=== PATIENT | male | born 1955 | race Two or more races ===

== ENCOUNTER 2016-09-16 00:15 | Emergency (ER) | payer SELFPAY ==
[~2016-09-16] VITALS: Ht 170.2 cm; Wt 70.0 kg
[~2016-09-16 00:15] MED LIST: AMLODIPINE10 MG OR; FIORICET PO; LISINOPRIL10 MG PO; LISINOPRIL20 M1 OR; LISINOPRIL20 MG PO; NAPROSYN500 MG PO; NO HOME MEDS; NORVASC5 MG OR; RESTORIL15 M1 OR; TENORMIN OR
[2016-09-16] MEDS ORDERED: LIPITOR10 M1 PO (00:53)
[2016-09-16 01:05] LABS: HEMATOCRIT 42.6 % (39.0-50.0); HEMOGLOBIN 14.3 g/dl (14.0-18.0); IMMATURE GRANULOCYTES 0.1 % (0.0-1.0); MEAN CELL VOLUME 87.3 fL CALC (80.0-100.0); MEAN CORPUSCULAR HGB 29.3 pG CALC (26.0-32.0); MEAN CORPUSCULAR HGB CONC 33.6 g/L CALC (32.0-36.0); NEUT# 4.36 thou/uL (1.82-7.42); RED BLOOD COUNT 4.88 mill/uL (4.70-6.10); RED CELL DISTRI WIDTH 13.8 % (11.5-15.5)
[2016-09-16 01:21] LABS: ALBUMIN 4.4 g/dL (3.2-5.0); ALKALINE PHOSPHATASE 45 u/l (38-126); ANION GAP 15 (6-22 (CALC)); BILIRUBIN, TOTAL 0.9 mg/dL (0.0-1.4); BUN 10 mg/dL (9-20); BUN/CREATININE RATIO 12 (12-20 (CALC)); CALCIUM 9.4 mg/dL (8.4-10.2); CARBON DIOXIDE 28 mmol/l (22-30); CHLORIDE 102 mmol/l (95-108); CREATININE 0.8 mg/dL (0.7-1.3); GFR > 60 ML/MIN (>=60 (CALC)); GFR FOR AFR.AMER. > 60 ML/MIN (>=60 (CALC)); GLUCOSE 123 mg/dL (75-110); SGOT/AST 26 u/l (17-59); SGPT/ALT 42 u/l (21-72); SODIUM 141 mmol/l (137-146); TOTAL PROTEIN 7.4 g/dL (6.3-8.2)
[2016-09-16 01:33] LABS: MYOGLOBIN 126 ng/mL (0 - 121)
[2016-09-16 02:26] LABS: BARBITURATES NEGATIVE (NEGATIVE); COCAINE NEGATIVE (NEGATIVE); METHADONE NEGATIVE (NEGATIVE); OXCYCODONE NEGATIVE (NEGATIVE); TETRAHYDROCANNABIONOL NEGATIVE (NEGATIVE); TRICYLIC ANTIDEPRESSANTS NEGATIVE (NEGATIVE)
[2016-09-16 02:27] LABS: URINE BILIRUBIN - DIPSTICK NEGATIVE (NEGATIVE); URINE BLOOD DIPSTICK NEGATIVE (NEGATIVE); URINE CLARITY CLEAR; URINE COLOR YELLOW; URINE GLUCOSE - DIPSTICK NEGATIVE (NEGATIVE); URINE KETONE NEGATIVE (NEGATIVE); URINE LEUK ESTERASE NEGATIVE (NEGATIVE); URINE NITRITE - DIPSTICK NEGATIVE (Negative); URINE PH 6.5 (4.5-8.0); URINE PROTEIN - DIPSTICK NEGATIVE (NEG-TRACE); URINE SPECIFIC GRAVITY <=1.005; URINE UROBILINOGEN - DIPSTICK 0.2 E.U./dL (0.2)
[2016-09-16] MEDS ORDERED: XANAX0.5 MG PO (02:57)
[2016-09-16 03:03] VITALS: BP 140/89
== END 2016-09-16 03:10 | disposition home or self-care (01) | DRG 882 ==
LOC: ED 00:15
PROVIDERS: Emergency Medicine
DX: F43.29 Adjustment disorder with other symptoms (principal)

== ENCOUNTER 2016-10-01 10:14 | Emergency (ER) | payer SELFPAY ==
[~2016-10-01] VITALS: Ht 170.2 cm; Wt 55.0 kg
[~2016-10-01 10:14] MED LIST changes: +LIPITOR10 M1 PO; +XANAX0.5 MG PO
[2016-10-01] MEDS ORDERED: XANAX0.5 MG PO (10:32)
[2016-10-01 10:40] VITALS: BP 133/87
== END 2016-10-01 10:42 | disposition home or self-care (01) | DRG 880 ==
LOC: ED 10:14
DX: F41.1 Generalized anxiety disorder (principal); I10 Essential (primary) hypertension; F43.0 Acute stress reaction; Z86.73 Personal history of transient ischemic attack (TIA), and cerebral infarction without residual deficits

== ENCOUNTER 2017-06-23 15:33 | Emergency (ER) | payer OTHER ==
[~2017-06-23] VITALS: Ht 170.2 cm; Wt 67.0 kg
[2017-06-23] MEDS ORDERED: METFORMIN500 MG PO (15:58)
[2017-06-23 16:34] LABS: URINE BILIRUBIN - DIPSTICK NEGATIVE (NEGATIVE); URINE BLOOD DIPSTICK NEGATIVE (NEGATIVE); URINE COLOR YELLOW; URINE GLUCOSE - DIPSTICK NEGATIVE (NEGATIVE); URINE KETONE NEGATIVE (NEGATIVE); URINE LEUK ESTERASE NEGATIVE (NEGATIVE); URINE NITRITE - DIPSTICK NEGATIVE (Negative); URINE PH 7.5 (4.5-8.0); URINE PROTEIN - DIPSTICK NEGATIVE (NEG-TRACE); URINE UROBILINOGEN - DIPSTICK 0.2 E.U./dL (0.2)
[2017-06-23 16:38] LABS: HEMATOCRIT 39.6 % (39.0-50.0); HEMOGLOBIN 13.2 g/dl (14.0-18.0); IMMATURE GRANULOCYTES 0.6 % (0.0-1.0); MEAN CELL VOLUME 88.4 fL CALC (80.0-100.0); MEAN CORPUSCULAR HGB 29.5 pG CALC (26.0-32.0); MEAN CORPUSCULAR HGB CONC 33.3 g/L CALC (32.0-36.0); NEUT# 4.6 thou/uL (1.82-7.42); RED BLOOD COUNT 4.48 mill/uL (4.70-6.10); RED CELL DISTRI WIDTH 13.3 % (11.5-15.5)
[2017-06-23 16:47] LABS: URINE CLARITY CLEAR
[2017-06-23 16:56] LABS: ALBUMIN 4.1 g/dL (3.2-5.0); ALKALINE PHOSPHATASE 47 u/l (38-126); ANION GAP 16 (6-22 (CALC)); BILIRUBIN, TOTAL 0.5 mg/dL (0.0-1.4); BUN 11 mg/dL (9-20); BUN/CREATININE RATIO 11 (12-20 (CALC)); CARBON DIOXIDE 31 mmol/l (22-30); CHLORIDE 97 mmol/l (95-108); GFR > 60 ML/MIN (>=60 (CALC)); GFR FOR AFR.AMER. > 60 ML/MIN (>=60 (CALC)); POTASSIUM 4.1 mmol/l (3.5-5.1); SGOT/AST 25 u/l (17-59); SGPT/ALT 33 u/l (21-72); SODIUM 139 mmol/l (137-146); TOTAL PROTEIN 6.8 g/dL (6.3-8.2)
[2017-06-23] MEDS ORDERED: XANAX0.5 MG PO (17:18)
[2017-06-23 17:29] LABS: TSH, 3RD GENERATION 1.03 uIU/mL (0.47 - 4.68)
[2017-06-23 17:34] VITALS: BP 99/65
== END 2017-06-23 17:34 | disposition home or self-care (01) | DRG 880 ==
LOC: ED 15:33
PROVIDERS: Emergency Medicine
DX: F41.9 Anxiety disorder, unspecified (principal); E11.8 Type 2 diabetes mellitus with unspecified complications; R42 Dizziness and giddiness; R53.1 Weakness; Z79.84 Long term (current) use of oral hypoglycemic drugs

== ENCOUNTER 2017-07-05 14:30 | Observation (INO) | payer OTHER ==
[~2017-07-05] VITALS: Ht 170.2 cm; Wt 52.2 kg
[~2017-07-05 14:30] MED LIST changes: +METFORMIN500 MG PO
--- NOTE | 2017-07-05 14:37 | NUR ---
PT TAKEN TO ER ROOM 9 BY EMS. IN ROOM. EKG COMPLETE.
--- NOTE | 2017-07-05 15:10 | NUR ---
LAB SPECIMENS AND URINE COLLECTED FROM PT. TOLERATED WELL. INFORMED OF WAIT TIME FOR RESULTS. VERBALIZED UNDERSTANDING. SCHOOL PROGRAM DIRECTOR IN PLACE. CALL LIGHT WITHIN REACH.
--- NOTE | 2017-07-05 15:15 | NUR ---
PT RESTING COMFORTABLE IN STRETCHER AND DENIES ANY PAIN AT THIS TIME. PT FEELING MUCH BETTER AFTER TAKING HIS XANAX COMMUNITY SERVICES COORDINATOR. VSS. PT TXTING ON PHONE AND IS AWARE OF PLAN OF CARE AND WAIT TIME. CALL DAMON WITHIN REACH.
[2017-07-05 15:20] LABS: HEMATOCRIT 41.6 % (39.0-50.0); HEMOGLOBIN 13.8 g/dl (14.0-18.0); IMMATURE GRANULOCYTES 0.6 % (0.0-1.0); MEAN CELL VOLUME 88.9 fL CALC (80.0-100.0); MEAN CORPUSCULAR HGB 29.5 pG CALC (26.0-32.0); MEAN CORPUSCULAR HGB CONC 33.2 g/L CALC (32.0-36.0); NEUT# 5.41 thou/uL (1.82-7.42); RED BLOOD COUNT 4.68 mill/uL (4.70-6.10); RED CELL DISTRI WIDTH 13.7 % (11.5-15.5)
[2017-07-05 15:37] LABS: ANION GAP 16 (6-22 (CALC)); BUN 17 mg/dL (9-20); BUN/CREATININE RATIO 18 (12-20 (CALC)); CARBON DIOXIDE 31 mmol/l (22-30); CHLORIDE 94 mmol/l (95-108); CREATININE 0.9 mg/dL (0.7-1.3); GFR > 60 ML/MIN (>=60 (CALC)); GFR FOR AFR.AMER. > 60 ML/MIN (>=60 (CALC)); POTASSIUM 4.1 mmol/l (3.5-5.1); SODIUM 137 mmol/l (137-146)
--- NOTE | 2017-07-05 16:15 | NUR ---
MD AT BEDSIDE TO DISCUSS RESULTS AND PLAN OF CARE. PT WILL NOTIFY STAFF IF HE WILL STAY FOR ADMISSION. PT DENIES ANY PAIN AT THIS TIME, CALL DAMON WITHIN REACH.
--- NOTE | 2017-07-05 16:30 | NUR ---
PT SITTING IN STRETCHER WITH HOB ELEVATED WATCHING MOVIE ON CELL PHONE. WHEN ASKED ABOUT ADMISSION PT ANSWERED THAT HE STILL NEEDS A FEW MORE MINUTES TO THINK ABOUT IT AND DISCUSS WITH HIS FAMILY. NOTIFIED.
--- NOTE | 2017-07-05 17:30 | NUR ---
SBAR PRINTED TO FLOOR
--- NOTE | 2017-07-05 17:40 | NUR ---
PT AMBULATED TO THE BATHROOM WITH A STEADY GAIT.
--- NOTE | 2017-07-05 17:50 | NUR ---
REPORT CALLED TO MEREDITH SWAN.
--- NOTE | 2017-07-05 18:00 | NUR ---
Admission Note Report Given to: [facility] Transported by: X Wheelchair Stretcher Transported with: X Nurse Transporter X Patent IV O2 X Representative Phlebotomy Services PT TO ROOM 282 VIA WHEELCHAIR IN STABLE CONDITION ON TELE MONITOR. BEDSIDE REPORT GIVEN.
--- NOTE | 2017-07-05 18:05 | NUR ---
FROM ER VIA WHEELCHAIR ACCOMPANIED BY FIDEL HARPER. AMBULATED TO BED WITH STEADY GAIT. RESPS EVEN AND UNLABORED ON ROOM AIR, TELE MONITOR IN PLACE. DENIES PAIN OR DISCOMFORT. ORIENTED TO ROOM AND CALL SYSTEM. SAFTEY PRECAUTIONS REINFORCED. BED IN LOWEST POSITION WITH WHEELS LOCKED. CALL LIGHT WITHIN REACH. ENCOURAGED PT TO CALL FOR ANY NEEDS.
[2017-07-05 19:30] VITALS: BP 104/59
--- NOTE | 2017-07-05 19:30 | NUR ---
PATIENT RESTING IN BED AT THIS TIME-AWAKE ALERT AND ORIENTEDX3. PATIENT WITH NO COMPLAINTS AT THIS TIME. IVF NS HUNG ORDERED VIA LEFT FOREARM SITE AT 100CC/HR ORDERED. SITE IS HEALTHY AT THIS TIME. PATIENT IS STILL WORKING ON HIS DINNER TRAY. SAFETY PRECAUTIONS REVIEWED WITH PATIENT. ORIENTED TO ROOM AND SURROUNDINGS. INSTRUCTED ON USE OF NURSE CALL LIGHT SYSTEM, TV REMOTE AND PHONE. CALL LIGHT IN REACH. WILL CONT TO MONITOR.
--- NOTE | 2017-07-05 20:45 | NUR ---
PATIENT RESTING IN BED WITH IVF NS PATENT AND INFUSING VIA LEFT FOREARM SITE AT 100CC/HR. SITE APPEARS HEALTHY AT THIS TIME. [id number]. PATIENT PROVIDED WITH SNACK-PEANUT BUTTER, JASVIR CRACKERS AND JUICE. PATIENT EDUCATED REGUARDING USE OF ACCU-CHECK MONITORING DEVICE WELL ON HYPOGLYCEMIA-S/S AND TREATMENT OF LOW BLOOD SUGAR. WILL NEED REINFORCEMENT. PATIENT INSTRUCTED TO HAVE FAMILY BRING IN HIS GLUCOSE MONITORING DEVICE WHEN THEY COME TO VISIT SO THAT STAFF WILL BE ABLE TO DO MORE TEACHING ON HOW TO USE THE DEVICE. VERBALIZING UNDERSTANDING. CALL LIGHT IN REACH. WILL CONT TO MONITOR.
[2017-07-06] VITALS (10 sets, daily range): BP systolic 83–147; BP diastolic 50–78
--- NOTE | 2017-07-06 00:30 | NUR ---
PATIENT RESTING IN BED-MEDICATED WITH XANAX 0.5MG PO FOR ANXIETY AND SLEEP. IVF PATENT AT 100CC/HR. CALL LIGHT IN REACH. WILL CONT TO MONITOR.
--- NOTE | 2017-07-06 07:40 | NUR ---
PT IS RELAXIGN IN BED WITH NO DISTRESS NOTED. IV SITE IS FREE FROM REDNESS OR EDEMA HR IS REG,PULSES ARE STRONG X4, ABD IS SOFT WITH ACTIVE BS. CONTINEU TO OBSERVE AND MONITOR,
[2017-07-06 10:48] LABS: CHOLESTEROL HDL RATIO 2.6 (<4.4 (CALC))
--- NOTE | 2017-07-06 11:25 | NUR ---
ORTHOSTATIC BLOOD PRESSURES DONE ON PT. LAYING BP AT 1125: 120/67; PULSE 82; OXYGEN 100%; SITTING BP AT 1130: 122/77; PULSE 86; OXYGEN 100%; STANDING BP AT 1135: 111/68; PULSE 84; OXYGEN 100%. PT PLACED BACK IN BED AT THIS TIME. NO COMPLAINTS, DURING BLOOD PRESSURE AND AFTER. CALL DAMON IN REACH.
--- NOTE | 2017-07-06 12:15 | NUR ---
PT IS RELAXING IN BED WITH NO DISTRESS NOTED. IV SITE IS FREE FROM REDNESS OR EDEMA. CONTINUE TO OBSERVE AND MONITOR,
--- NOTE | 2017-07-06 16:20 | NUR ---
ORTHOSTATIC BP DONE ON THIS PT AT THIS TIME. LAYING AT 1620 BP IS 116/71; PULSE 83; OXYGEN 95%; SITTING BP AT 1625 IS 113/69; PULSE 82; OXYGEN 99%; STANDING BP AT 1630 IS 121/76; PULSE 90; OXYGEN 98%; PT NOW LAYING IN BED. CALL DAMON IN REACH.
[2017-07-06] MEDS ORDERED: ASPIRIN CHEWABL81 MG PO (17:02)
--- NOTE | 2017-07-06 18:21 | NUR ---
IV SITE AND TELE MONITOR DISCONTINEUD. DISCHARGE INSTRUCTIONS GIVEN, VERBALIZED UNDERSTANDING. Discharge instructions given. Patient verbalizes understanding of same. Discharged in stable condition via Wheelchair to Home with family. All belongings sent with pt.
--- NOTE | 2017-07-06 18:33 | NUR ---
PT AMBULATED OFF THE UNIT.
== END 2017-07-06 18:25 | disposition home or self-care (01) | DRG 312 ==
LOC: ED 14:30 → ED-I 16:32 → ED 16:57 → MS2 16:58
PROVIDERS: Family Medicine; Nurse Practitioner Family; ADMIT Internal Medicine; ATTEND Internal Medicine
DX: R55 Syncope and collapse (principal); I95.1 Orthostatic hypotension; E11.9 Type 2 diabetes mellitus without complications; I10 Essential (primary) hypertension; F41.0 Panic disorder [episodic paroxysmal anxiety]; Z86.73 Personal history of transient ischemic attack (TIA), and cerebral infarction without residual deficits
CPT/HCPCS: G0378